=== PATIENT | female | born 1960 | race Caucasian/White ===

== ENCOUNTER 2024-11-29 08:29 | Outpatient (CLI) | payer MEDICARE, MEDICAID ==
--- NOTE | 2024-11-29 11:28 | RADIOLOGY REPORT ---
CT Chest without intravenous contrast INDICATION: NICOTINE DEPENDENCE, CIGARETTES, UNCOMPLICATED TECHNIQUE: Multidetector spiral CT of the chest was performed from the lung apices to the upper abdom en utilizing axial images. Coronal and sagittal multiplanar reformats were performed. Radiation Dose : 1. Chest: CTDI volume is 3.7 mGy. Dose-length product is 19.2 mGy*cm The dose indicators for CT are the volume Computed Tomography (CT) Dose Index (CTDIvol) and the Dose Length Product (DLP), and are measured in units of mGy and mGy-cm, respectively. These indicators are not patient dose, but values generated from the CT scanner acquisition factors. The report includes radiation exposure data for exposures received during this examination. Comparison: None Findings: Lower neck: Unremarkable thyroid Lungs: There is a 3 mm nodule in the lateral right upper lobe (series 2, image 40). There is a 3 mm n odule in the lateral right upper lobe (series 2, image 56). No focal airspace disease. Central airways: Patent. Pleura: No pleural effusions. No pneumothorax Heart/Vascular Structures: The heart is normal in size. No pericardial effusion. There are coronar y artery calcifications. Normal caliber thoracic aorta. The main pulmonary artery is normal in christal kiko. Mediastinum: Hiatal hernia. Lymph Nodes: No adenopathy Musculoskeletal: No fracture or suspicious bone lesions. Body wall: Unremarkable Upper abdomen: Unremarkable. IMPRESSION: 1. Subcentimeter pulmonary nodules. 2. Hiatal hernia. Lung-RADS: Category 2: Recommendation: Continue annual screening with LDCT [email or web address]
== END 2024-11-29 23:59 | disposition home or self-care (01) ==
LOC: RAD 08:29
PROVIDERS: ATTEND Family Medicine
DX: Z12.2 Encounter for screening for malignant neoplasm of respiratory organs (principal); F17.210 Nicotine dependence, cigarettes, uncomplicated; R91.1 Solitary pulmonary nodule
CPT/HCPCS: 71271